=== PATIENT | female | born 1965 | race Caucasian/White ===

== ENCOUNTER 2017-01-15 23:57 | Observation (INO) | payer MEDICAID ==
[~2017-01-15 23:57] MED LIST: ACIDOPHILUS1 EAC5 PO; ASPIR 8181 M1 PO; BACTRIM DS TAB1 EAC2 PO; CLINDAMYCIN HC300 M2 PO; FISH OIL 1,2001 EAC7 PO; HUMULIN N KWIKPEN SC; HYDROCHLOROTH12.5 M2 PO; IBUPROFEN200 M3 PO; IBUPROFEN800 M1 PO; LEVAQUIN500 M1 PO; LEVEMIR FL100 UNIT/2 SC; LOVASTATIN20 M2 PO; METFORMIN HCL1000 M2 PO; POTASSIUM CHLO20 ME3 PO; PRINIVIL20 M1 PO; SULFAMYLON SOL250 M1 EXT; SULFAMYLON SOL250 M1 TOP; ZESTRIL2.5 M3 PO
[2017-01-16] MEDS ORDERED: PROAIR HFA8.5 GM INH (00:21)
[2017-01-16] MEDS ORDERED: IBUPROFEN200 M2 PO (00:22)
[2017-01-16] MEDS ORDERED: POTASSIUM CHLO10 ME2 PO (00:23)
[2017-01-16 00:52] LABS: BASO % 0.4 % (0-2); EOS % 3.1 % (0-7); EOSINOPHIL ABSOLUTE COUNT 0.3 tho/cmm (0.0-0.7); HCT-HEMATOCRIT 32.1 % (34.0-49.0); HGB-HEMOGLOBIN 10.5 gm/dl (12.0-15.5); IMMATURE GRANULOCYTES ABSOLUTE 0.02 tho/cmm (0-0.03); IMMATURE GRANULOCYTES PERCENT 0.2 % (0-0.3); LYMPH % 34.5 % (20-45); LYMPH ABSOLUTE COUNT 2.9 tho/cmm (0.8-4.5); MCH (MEAN CORPUSCULAR HGB) 27.5 pg (28.0-32.0); MCHC MEAN CORPUSCULAR HGB CONC 32.7 % (32.0-36.0); MEAN PLATELET VOLUME 10.7 cmc (9.4-12.4); MONO % 7.5 % (0-12); MONOCYTE ABSOLUTE COUNT 0.6 tho/cmm (0.0-1.2); NEUTROPHIL ABSOLUTE COUNT 4.5 tho/cmm (1.6-8.0); NEUTROPHIL-AUTOMATED 4.5 tho/cmm (1.6-8.0); NEUTROPHILS % 54.3 % (40-80); PLATELET COUNT 352 tho/cmm (150-450); RED BLOOD COUNT 3.82 mil/cmm (4.00-5.20); RED CELL DISTRIBUTION WIDTH 14.5 % (12.4-16.4); WHITE BLOOD COUNT 8.3 tho/cmm (4.0-10.0)
[2017-01-16 01:05] LABS: ANION GAP 14 mmol/L (0-20); BLOOD UREA NITROGEN 16 mg/dl (6-24); C-REACTIVE PROTEIN 8.6 mg/dl (0-0.9); CALCIUM 9.6 mg/dl (8.5-10.5); CARBON DIOXIDE-VENOUS 25 mmol/L (22-32); CHLORIDE 102 mmol/l (96-110); CREATININE 0.94 mg/dl (0.50-1.10); GLUCOSE 211 mg/dL (70-110); POTASSIUM 3.7 mmol/L (3.7-5.1); SODIUM 137 mmol/L (135-145); eGFR VALUE FOR BLACK 83 mL/Min
[2017-01-16 01:12] LABS: ESR-ERYTHROCYTE SED RATE 77 mm/hr (0-20)
[2017-01-16 05:26] LABS: BASO % 0.4 % (0-2); EOS % 3.8 % (0-7); EOSINOPHIL ABSOLUTE COUNT 0.3 tho/cmm (0.0-0.7); HCT-HEMATOCRIT 30.8 % (34.0-49.0); HGB-HEMOGLOBIN 10.1 gm/dl (12.0-15.5); IMMATURE GRANULOCYTES ABSOLUTE 0.01 tho/cmm (0-0.03); IMMATURE GRANULOCYTES PERCENT 0.1 % (0-0.3); LYMPH % 40.4 % (20-45); LYMPH ABSOLUTE COUNT 2.8 tho/cmm (0.8-4.5); MCH (MEAN CORPUSCULAR HGB) 27.7 pg (28.0-32.0); MCHC MEAN CORPUSCULAR HGB CONC 32.8 % (32.0-36.0); MCV (MEAN CELL VOLUME) 84.6 fl (82.0-96.0); MEAN PLATELET VOLUME 10.5 cmc (9.4-12.4); MONO % 6.9 % (0-12); MONOCYTE ABSOLUTE COUNT 0.5 tho/cmm (0.0-1.2); NEUTROPHIL ABSOLUTE COUNT 3.3 tho/cmm (1.6-8.0); NEUTROPHIL-AUTOMATED 3.3 tho/cmm (1.6-8.0); NEUTROPHILS % 48.4 % (40-80); PLATELET COUNT 317 tho/cmm (150-450); RED BLOOD COUNT 3.64 mil/cmm (4.00-5.20); RED CELL DISTRIBUTION WIDTH 14.5 % (12.4-16.4); WHITE BLOOD COUNT 6.8 tho/cmm (4.0-10.0)
--- NOTE | 2017-01-16 19:40 | NUR ---
VIRTUAL CARE NOTE: PT. IS IN BED. STATES HAS A BIT OF PAIN ON LEFT ANKLE SITE. PT. ADJUSTED STRAP ON SCDS VIA INSTRUCTION TO SEE IF THIS WOULD HELP. C/O OF BEING HUNGRY. AIDE PAGED FOR OPTIONS. DENIES FURTHER NEEDS AT THIS TIME. INSTRUCTED TO CALL FOR FUTURE NEEDS. STATES VERBAL AGREEMENT.
--- NOTE | 2017-01-17 16:01 | NUR ---
VIRTUAL CARE NOTE: PT RESTING ON BED, WOUND CARE DONE TWICE A DAY PER ORDER. PT STATES SHE DOES HER OWN DRESSING AT HOME. PLAN OF CARE REVIEWED, PT WAS TOLD PER TO BE HERE A FEW DAYS FOR ABX. PT DENIES ANY NEEDS OR QUESTIONS AT THIS TIME.
[2017-01-18 06:02] LABS: ANION GAP 12 mmol/L (0-20); BLOOD UREA NITROGEN 14 mg/dl (6-24); CALCIUM 8.8 mg/dl (8.5-10.5); CARBON DIOXIDE-VENOUS 26 mmol/L (22-32); CHLORIDE 103 mmol/l (96-110); CREATININE 0.75 mg/dl (0.50-1.10); GLUCOSE 203 mg/dL (70-110); POTASSIUM 4.2 mmol/L (3.7-5.1); SODIUM 137 mmol/L (135-145); eGFR VALUE FOR BLACK >90 mL/Min
[2017-01-18] MEDS ORDERED: VIBRAMYCIN100 M1 PO (10:58)
[2017-01-18] MEDS ORDERED: SILVADENE20 G1 TP (11:41)
--- NOTE | 2017-01-18 12:12 | NUR ---
[facility]N DISCHARGE TEACHING-REVIEWED THE DISCHARGE INSTRUCTIONS,DIET,MEDS,DRESSING CHANGES AND S/S OF WHEN TO CALL DOCTOR AND THE FOLLOW UP APPTS. PATIENT WAS ABLE TO DO TEACHBACK WELL AND HAD NO FURTHR QUESTIONS OR CONCERNS. NOTIFIED NURSE SHE IS READY TO GO AFTER PAPERS ARE DOUBLE CHECKED.
[2017-03-10] MEDS ORDERED: CRANBERRY200 M1 PO (02:13)
[2017-03-10] MEDS ORDERED: COREG3.125 M1 PO (12:57)
[2017-05-20] MEDS ORDERED: IRON325 M3 PO (22:17)
[2017-05-20] MEDS ORDERED: VIBRAMYCIN100 M1 PO (23:41)
[2017-05-20] MEDS ORDERED: PERCOCET 5-3251 EACH PO (23:41)
[2017-05-20] MEDS ORDERED: KEFLEX500 M4 PO (23:41)
[2017-06-02] MEDS ORDERED: IBUPROFEN800 M1 PO (14:56)
[2017-06-02] MEDS ORDERED: HYDROCHLOROTH12.5 M3 PO (14:57)
[2017-06-02] MEDS ORDERED: OMEPRAZOLE20 M3 PO (14:57)
[2017-06-02] MEDS ORDERED: GLUCOPHAGE1000 M1 PO (14:57)
[2017-06-02] MEDS ORDERED: TRICOR145 M2 PO (14:58)
[2017-06-02] MEDS ORDERED: FEOSOL325 M1 PO (14:58)
[2017-06-02] MEDS ORDERED: DAPTOMYCIN500 MG (14:59)
[2017-06-02] MEDS ORDERED: POTASSIUM CHLO20 ME4 PO (14:59)
[2017-06-02] MEDS ORDERED: ARTIFICIAL TEAR15 M8 OP (14:59)
[2017-06-02] MEDS ORDERED: HYDROCODON-ACE1 EA16 PO (15:00)
[2017-06-02] MEDS ORDERED: ONE DAILY WOME1 EAC3 PO (16:08)
[2017-06-02] MEDS ORDERED: PERCOCET 5-3251 EACH PO (16:25)
[2017-06-06] MEDS ORDERED: VANCO 1 GR1 GM/250 M IV (17:52)
[2017-06-06] MEDS ORDERED: ROXICODONE5 M2 PO (17:53)
== END 2017-01-18 13:40 ==
LOC: EDMED 23:57 → EMR2 01-16 02:44 → 5WD 01-16 03:40
PROVIDERS: Emergency Medicine; Family Medicine; Physician Assistant; ADMIT Internal Medicine
PROC: 05HC33Z Insertion of Infusion Device into Left Basilic Vein, Percutaneous Approach (ICD-10-PCS; principal; 2017-01-16)
DX: E11.621 Type 2 diabetes mellitus with foot ulcer (principal); L03.116 Cellulitis of left lower limb; E11.69 Type 2 diabetes mellitus with other specified complication; E11.40 Type 2 diabetes mellitus with diabetic neuropathy, unspecified; I10 Essential (primary) hypertension; G47.33 Obstructive sleep apnea (adult) (pediatric); E66.09 Other obesity due to excess calories; D63.8 Anemia in other chronic diseases classified elsewhere; E53.8 Deficiency of other specified B group vitamins; K21.9 Gastro-esophageal reflux disease without esophagitis; F17.200 Nicotine dependence, unspecified, uncomplicated; F12.90 Cannabis use, unspecified, uncomplicated; E78.5 Hyperlipidemia, unspecified; G25.81 Restless legs syndrome; Z79.1 Long term (current) use of non-steroidal anti-inflammatories (NSAID); Z79.82 Long term (current) use of aspirin; Z79.4 Long term (current) use of insulin; Z79.84 Long term (current) use of oral hypoglycemic drugs; Z79.899 Other long term (current) drug therapy; Z88.1 Allergy status to other antibiotic agents; Z83.3 Family history of diabetes mellitus; Z90.49 Acquired absence of other specified parts of digestive tract; Z98.890 Other specified postprocedural states
CPT/HCPCS: C1751; G0378; J1815; J2543; J3370; J7030; J7050